=== PATIENT | female | born 1995 | race Two or more races ===

== ENCOUNTER 2017-08-20 09:31 | Emergency (ER) | payer SELFPAY ==
[~2017-08-20] VITALS: Ht 162.6 cm; Wt 47.6 kg
[2017-08-20 09:41] VITALS: BP 99/68
== END 2017-08-20 10:15 | disposition home or self-care (01) ==
LOC: ER 09:34
DX: N39.0 Urinary tract infection, site not specified (principal); Z88.8 Allergy status to other drugs, medicaments and biological substances
CPT/HCPCS: 99283; A4606; Z7610